=== PATIENT | female | born 1990 | race Caucasian/White ===

== ENCOUNTER → 2022-05-06 | Outpatient (CLI) | payer OTHER ==
[2022-05-06 13:27] LABS: BASO % 0.2 % (0.0-1.0); EOS % 0.5 % (0.0-3.0); HEMATOCRIT 37.4 % (36.0-47.0); HEMOGLOBIN 12.4 g/dl (12.0-15.5); LYMPH # 1.8 10^3/uL (1.5-5.0); LYMPH % 21.3 % (24.0-44.0); MEAN CORPUSCULAR HEMOGLOBIN 28.8 pg (27.0-33.0); MEAN CORPUSCULAR HGB CONC 33.2 g/dl (32.0-36.5); MEAN CORPUSCULAR VOLUME 86.8 fl (80.0-96.0); MONO # 0.4 10^3/uL (0.0-0.8); MONO % 4.2 % (2.0-8.0); NEUTROPHILS # 6.1 10^3/uL (1.5-8.5); NEUTROPHILS % 73.6 % (36.0-66.0); PLATELET COUNT, AUTOMATED 224 10^3/uL (150-450); RED BLOOD COUNT 4.31 10^6/uL (4.00-5.40); WHITE BLOOD COUNT 8.3 10^3/uL (4.0-10.0)
[2022-05-06 14:35] LABS: HEPATITIS C VIRUS ABY INDEX < 0.0 INDEX (<0.8); HIV 1&2 SCREEN CENTAUR NEGATIVE (NEGATIVE)
[2022-05-06 15:04] LABS: GC DNA AMPLIFICATION NEGATIVE (NEGATIVE)
== END ==
LOC: M PLALAB 09:55
PROVIDERS: ATTEND Obstetrics & Gynecology
DX: O21.9 Vomiting of pregnancy, unspecified (principal); Z3A.00 Weeks of gestation of pregnancy not specified

== ENCOUNTER → 2022-07-18 | Outpatient (CLI) | payer OTHER | LOC: M WHC 15:04 | PROVIDERS: ATTEND Obstetrics & Gynecology | DX: O34.211 Maternal care for low transverse scar from previous cesarean delivery (principal) ==

== ENCOUNTER → 2022-09-02 | Outpatient (CLI) | payer OTHER | LOC: M WHC 06:51 | PROVIDERS: ATTEND Advanced Practice Midwife | DX: Z34.92 Encounter for supervision of normal pregnancy, unspecified, second trimester (principal) ==

== ENCOUNTER → 2022-09-02 | Outpatient (CLI) | payer OTHER ==
[2022-09-02 11:00] LABS: HEMATOCRIT 32.3 % (36.0-47.0); HEMOGLOBIN 10.4 g/dl (12.0-15.5); MEAN CORPUSCULAR HEMOGLOBIN 29.6 pg (27.0-33.0); MEAN CORPUSCULAR HGB CONC 32.2 g/dl (32.0-36.5); PLATELET COUNT, AUTOMATED 213 10^3/uL (150-450); RED BLOOD COUNT 3.51 10^6/uL (4.00-5.40); WHITE BLOOD COUNT 8.5 10^3/uL (4.0-10.0)
== END ==
LOC: M PLALAB 06:59
PROVIDERS: ATTEND Advanced Practice Midwife
DX: Z34.92 Encounter for supervision of normal pregnancy, unspecified, second trimester (principal)

== ENCOUNTER → 2022-09-19 | Outpatient (CLI) | payer OTHER | LOC: M LAB 07:02 | PROVIDERS: ATTEND Advanced Practice Midwife | DX: O99.810 Abnormal glucose complicating pregnancy (principal); Z3A.00 Weeks of gestation of pregnancy not specified ==

== ENCOUNTER → 2022-11-04 | Outpatient (REF) | payer OTHER ==
[~2022-11-04] MED LIST: ACET650T61 PO; IRON325T2 PO; OMEP40CA4 PO; PRENTAB53 PO
== END ==
LOC: M SFHCWAGY 16:42
PROVIDERS: ATTEND Advanced Practice Midwife
DX: Z34.93 Encounter for supervision of normal pregnancy, unspecified, third trimester (principal)

== ENCOUNTER 2022-11-18 05:20 | Inpatient (IN) | payer OTHER ==
[~2022-11-18] VITALS: Ht 167.6 cm; Wt 68.1 kg
[2022-11-18] VITALS (12 sets, daily range): BP systolic 84–107; BP diastolic 50–68
[2022-11-18] MEDS ORDERED: HOME MED LIST COMPLETE! XX SCH (05:35)
[2022-11-18] MEDS ORDERED: BICITRA 30ML SOLN UDC PO ONE (06:25)
[2022-11-18] MEDS ORDERED: LR 1,000 ML IV ONE (06:25)
[2022-11-18] MEDS ORDERED: ceFAZolin SOD 2 GM in IV 1 EA IV ONE (06:25)
[2022-11-18] MEDS ORDERED: LR 1,000 ML IV SCH ×2 (06:25→09:15)
[2022-11-18 06:49] LABS: HEMATOCRIT 34.4 % (36.0-47.0); HEMOGLOBIN 11.4 g/dl (12.0-15.5); MEAN CORPUSCULAR HEMOGLOBIN 29.7 pg (27.0-33.0); MEAN CORPUSCULAR HGB CONC 33.1 g/dl (32.0-36.5); MEAN CORPUSCULAR VOLUME 89.6 fl (80.0-96.0); PLATELET COUNT, AUTOMATED 192 10^3/uL (150-450); RED BLOOD COUNT 3.84 10^6/uL (4.00-5.40); WHITE BLOOD COUNT 6.8 10^3/uL (4.0-10.0)
[2022-11-18] MEDS ORDERED: MORPHINE PRES-FREE INJ 10 MG/10 ML VIAL As Ordered ONE (07:39)
[2022-11-18] MEDS ORDERED: KETOROLAC 60MG 2ML VIAL As Ordered ONE (07:39)
[2022-11-18] MEDS ORDERED: ONDANSETRON 4MG 2ML VIAL As Ordered ONE ×2 (07:39→09:16)
[2022-11-18] MEDS ORDERED: OXYTOCIN 30UNITS IN 0.9% NaCl 500ML IV BAG As Ordered ONE ×2 (07:39→09:04)
[2022-11-18] MEDS ORDERED: ACETAMINOPHEN 1000MG 100ML IV BAG As Ordered ONE (07:39)
[2022-11-18] MEDS ORDERED: ePHEDrine SULFATE 25 MG/5 ML(5MG/ML) SYRINGE As Ordered ONE ×2 (07:58→08:05)
[2022-11-18] MEDS ORDERED: PHENYLephrine 500MCG 5ML (100MCG/ML) SYRINGE As Ordered ONE (08:00)
[2022-11-18] MEDS ORDERED: ONDANSETRON 4MG 2ML VIAL IV PRN ×2 (08:55→09:15)
[2022-11-18] MEDS ORDERED: RHOGAM 300MCG (1500IU) INJ IM SCH (08:55)
[2022-11-18] MEDS ORDERED: OXYTOCIN DRIP 30 UNITS in IV 1 EA IV SCH (08:55)
[2022-11-18] MEDS ORDERED: DOCUSATE SODIUM 100MG CAPSULE PO PRN (08:55)
[2022-11-18] MEDS ORDERED: SIMETHICONE 80MG CHEW TAB PO PRN (08:55)
[2022-11-18] MEDS ORDERED: PERCOCET 5MG/325MG TAB PO PRN ×2 (08:55)
[2022-11-18] MEDS: PRENATAL VITAMINS CHEWABLE TABLET PO SCH (09:00)
[2022-11-18] MEDS ORDERED: COLA100C5 PO (09:14)
[2022-11-18] MEDS ORDERED: PERCOCET PO (09:14)
[2022-11-18] MEDS ORDERED: IBUP80TA PO (09:14)
[2022-11-18] MEDS ORDERED: oxyCODONE 5MG TAB PO PRN (09:15)
[2022-11-18] MEDS ORDERED: NALOXONE INJ 0.4MG/1ML VIAL IV PRN ×2 (09:15)
[2022-11-18] MEDS ORDERED: diphenhydrAMINE 50MG/ML VIAL IV PRN (09:15)
[2022-11-18] MEDS ORDERED: METOCLOPRAMIDE INJ 10MG/2ML VIAL IV PRN (09:15)
[2022-11-18] MEDS ORDERED: **NOTE PATIENT COMMENT** MISC XX SCH (09:15)
[2022-11-18] MEDS ORDERED: MEPERIDINE 25 MG/ML 1ML VIAL IV PRN (09:15)
[2022-11-18] MEDS: SLF 3 ML SYR IV SCH ×2 (09:15→17:15)
[2022-11-18] MEDS ORDERED: MORPHINE 2 MG/ML 1ML VIAL IV PRN (09:15)
[2022-11-18] MEDS ORDERED: fentaNYL 100 MCG/2 ML INJECTION IV PRN (09:15)
[2022-11-18] MEDS ORDERED: METOCLOPRAMIDE INJ 10MG/2ML VIAL As Ordered ONE (09:37)
[2022-11-18] MEDS ORDERED: fentaNYL 100 MCG/2 ML INJECTION As Ordered ONE (09:44)
[2022-11-18] MEDS: LR 1,000 ML IV SCH ×2 (10:05→16:05)
[2022-11-18] MEDS ORDERED: PROMETHAZINE 25MG/ML 1ML VIAL IV ONE (11:15)
[2022-11-18] MEDS: KETOROLAC 30 MG/ML 1ML VIAL IV SCH ×2 (13:57→19:58)
[2022-11-18] MEDS ORDERED: LR 500 ML IV ONE (18:30)
[2022-11-19] MEDS: KETOROLAC 30 MG/ML 1ML VIAL IV SCH (01:55)
[2022-11-19] MEDS: SLF 3 ML SYR IV SCH (01:56)
[2022-11-19 02:09] VITALS: BP 99/57
[2022-11-19 06:00] VITALS: BP 104/61
[2022-11-19 06:33] LABS: HEMATOCRIT 27.1 % (36.0-47.0); MEAN CORPUSCULAR HEMOGLOBIN 29.9 pg (27.0-33.0); MEAN CORPUSCULAR HGB CONC 33.2 g/dl (32.0-36.5); PLATELET COUNT, AUTOMATED 152 10^3/uL (150-450); RED BLOOD COUNT 3.01 10^6/uL (4.00-5.40); WHITE BLOOD COUNT 9.9 10^3/uL (4.0-10.0)
[2022-11-19] MEDS: PRENATAL VITAMINS CHEWABLE TABLET PO SCH (08:15)
[2022-11-19] MEDS: IBUPROFEN 800 MG TAB PO SCH ×2 (09:46→17:34)
[2022-11-19 10:00] VITALS: BP 108/65
[2022-11-19 14:00] VITALS: BP 111/64
[2022-11-19 18:00] VITALS: BP 108/65
[2022-11-19 22:00] VITALS: BP 108/72
[2022-11-20 02:00] VITALS: BP 113/52
[2022-11-20] MEDS: IBUPROFEN 800 MG TAB PO SCH ×2 (02:42→08:31)
[2022-11-20 06:00] VITALS: BP 98/59
[2022-11-20] MEDS: PRENATAL VITAMINS CHEWABLE TABLET PO SCH (08:31)
[2022-11-20] MEDS ORDERED: MEASLES,MUMPS,RUBELLA VACCINE INJ (MMR-II) SC.IMMUN ONE (09:00)
[2022-11-20 10:00] VITALS: BP 109/66
== END 2022-11-20 13:05 | disposition home or self-care (01) | DRG 785 ==
LOC: M LDI 05:20 → M OBS 10:48
PROVIDERS: ADMIT Obstetrics & Gynecology; ATTEND Obstetrics & Gynecology
PROC: 0UB70ZZ Excision of Bilateral Fallopian Tubes, Open Approach (ICD-10-PCS; 2022-11-18)
PROC: 10D00Z1 Extraction of Products of Conception, Low, Open Approach (ICD-10-PCS; principal; 2022-11-18 07:30)
DX: O34.211 Maternal care for low transverse scar from previous cesarean delivery (principal); Z3A.39 39 weeks gestation of pregnancy; Z37.0 Single live birth; Z30.2 Encounter for sterilization

== ENCOUNTER → 2023-03-30 | Outpatient (REF) | payer OTHER ==
[~2023-03-30] MED LIST changes: +COLA100C5 PO; +IBUP80TA PO; +PERCOCET PO
== END ==
LOC: M SFHCWAGY 13:01
PROVIDERS: ATTEND Obstetrics & Gynecology
DX: Z12.4 Encounter for screening for malignant neoplasm of cervix (principal); Z01.419 Encounter for gynecological examination (general) (routine) without abnormal findings; Z77.9 Other contact with and (suspected) exposures hazardous to health

== ENCOUNTER → 2023-04-13 | Outpatient (REF) | payer OTHER ==
[2023-04-13 13:15] LABS: BASO % 0.4 % (0.0-1.0); EOS # 0.1 10^3/uL (0.0-0.5); EOS % 1.5 % (0.0-3.0); HEMOGLOBIN 13.5 g/dl (12.0-15.5); LYMPH # 2.1 10^3/uL (1.5-5.0); LYMPH % 38.2 % (24.0-44.0); MEAN CORPUSCULAR HGB CONC 32.1 g/dl (32.0-36.5); MONO # 0.3 10^3/uL (0.0-0.8); MONO % 5.5 % (2.0-8.0); NEUTROPHILS % 53.9 % (36.0-66.0); PLATELET COUNT, AUTOMATED 226 10^3/uL (150-450); RED BLOOD COUNT 4.83 10^6/uL (4.00-5.40); WHITE BLOOD COUNT 5.5 10^3/uL (4.0-10.0)
[2023-04-13 13:28] LABS: HEMOGLOBIN A1c 5.6 % (4.0-6.0)
[2023-04-13 13:45] LABS: THYROID STIMULATING HORMONE 1.505 uIU/ML (0.55-4.78)
[2023-04-13 13:46] LABS: TOTAL 25(OH) VITAMIN D 30.2 NG/ML (20.0-100.0)
[2023-04-13 13:47] LABS: ALBUMIN 3.9 G/DL (3.2-5.2); ALKALINE PHOSPHATASE 88 U/L (46-116); ALT/SGPT < 9 U/L (7.0-40); AST/SGOT 26 U/L (<34); BILIRUBIN,TOTAL 0.3 MG/DL (0.3-1.2); BLOOD UREA NITROGEN 13 MG/DL (9-23); CALCIUM LEVEL 9.3 MG/DL (8.5-10.1); CARBON DIOXIDE LEVEL 30 MMOL/L (20-31); CHLORIDE LEVEL 102 MMOL/L (98-107); CHOLESTEROL LEVEL 227 MG/DL (<200); CHOLESTEROL RISK RATIO 4.28 (<5); CREATININE FOR GFR 0.55 MG/DL (0.55-1.30); GLOMERULAR FILTRATION RATE > 60.0 (>60); GLUCOSE, FASTING 86 MG/DL (60-100); LDL CHOLESTEROL 144.4 MG/DL (<100); POTASSIUM SERUM 3.9 MMOL/L (3.5-5.1); SODIUM LEVEL 139 MMOL/L (136-145); TOTAL PROTEIN 7.5 G/DL (5.7-8.2); TRIGLYCERIDES LEVEL 148 MG/DL (<150)
== END ==
LOC: M LAB REF 12:03
PROVIDERS: ATTEND Nurse Practitioner Family
DX: Z13.228 Encounter for screening for other metabolic disorders (principal)

== ENCOUNTER → 2023-04-23 | Outpatient (CLI) | payer OTHER | LOC: M WUC 11:51 | PROVIDERS: ATTEND Family Medicine Addiction Medicine | DX: S82.62XA Displaced fracture of lateral malleolus of left fibula, initial encounter for closed fracture (principal); Y93.9 Activity, unspecified; Y92.9 Unspecified place or not applicable ==